=== PATIENT | female | born 1945 | race Caucasian/White ===

== ENCOUNTER 2020-11-19 10:16 | Outpatient (CLI) | payer MEDICARE | END 2020-11-19 10:17 | disposition home or self-care (01) | LOC: PET 10:16 | PROVIDERS: ATTEND Family Medicine | DX: C90.00 Multiple myeloma not having achieved remission (principal) | CPT/HCPCS: 78815; A9552 ==

== ENCOUNTER 2021-01-20 12:17 | Outpatient (CLI) | payer MEDICARE | END 2021-01-20 12:18 | disposition home or self-care (01) | LOC: BICCT 12:17 | PROVIDERS: ATTEND Internal Medicine Gastroenterology | DX: R93.89 Abnormal findings on diagnostic imaging of other specified body structures (principal) | CPT/HCPCS: 72193 ==